=== PATIENT | female | born 1970 | race Caucasian/White ===

== ENCOUNTER 2024-10-12 12:14 | Emergency (ER) | payer OTHER, BC | END 2024-10-12 13:03 | disposition home or self-care (01) | LOC: BURERS 12:14 | DX: Z48.00 Encounter for change or removal of nonsurgical wound dressing (principal); E78.00 Pure hypercholesterolemia, unspecified; Z79.899 Other long term (current) drug therapy | CPT/HCPCS: 99282 ==